=== PATIENT | female | born 1995 | race American Indian/Alaskan Native ===

== ENCOUNTER 2017-08-28 17:54 | Emergency (ER) | payer OTHER ==
[2017-08-28 17:54] VITALS: BMI 26.5
[2017-08-28 18:12] VITALS: BP 140/72; PULSE 80; RESP 16; TEMP 97.6; O2SAT 100
--- NOTE | 2017-08-28 18:36 | ED PDOC ---
HPI: Female Pain Time Seen by Provider: 08/28/17 18:23 Chief Complaint (Nursing): Abdominal Pain Chief Complaint (Provider): Pelvic pain History Per: Patient History/Exam Limitations: no limitations Onset/Duration Of Symptoms: Days (1 week) Additional Complaint(s): Pt. with pelvic pain across lower. No vaginal bleeding. No dysuria. No back pain. Has nausea, no vomit. No fever, chest pain. Wants to know if she is preg. Feels like her period type pain. Past Medical History Reviewed: Nursing Documentation, Vital Signs Vital Signs: Last Vital Signs Temp 97.6 F 08/28/17 18:07 Pulse 80 08/28/17 18:07 Resp 16 08/28/17 18:07 BP 140/72 08/28/17 18:07 Pulse Ox 100 08/28/17 18:07 - Medical History PMH: Asthma Denies: Anxiety, Bipolar Disorder, Depression, Personality Disorder, Post Traumatic Stress Disorder, Schizophrenia - Surgical History Surgical History: No Surg Hx - Family History Family History: States: Unknown Family Hx - Living Arrangements Living Arrangements: With Family - Social History Current smoker - smoking cessation education provided: No Alcohol: None Drugs: Denies - Immunization History Hx Tetanus Toxoid Vaccination: No Hx Influenza Vaccination: No Hx Pneumococcal Vaccination: No - Home Medications Home Medications: Ambulatory Orders Medication Instructions Recorded Ibuprofen [Motrin] 600 mg PO TID 7 Days tab 08/28/17 - Allergies Allergies/Adverse Reactions: Allergies Allergy/AdvReac Type Severity Reaction Status Date / Time No Known Allergies Allergy Verified 08/28/17 18:07 Review of Systems ROS Statement: Except As Marked, All Systems Reviewed And Found Negative Gastrointestinal: Positive for: Nausea Genitourinary Female: Positive for: Pelvic Pain Physical Exam - Reviewed Nursing Documentation Reviewed: Yes Vital Signs Reviewed: Yes - Physical Exam Appears: Positive for: Non-toxic, No Acute Distress Head Exam: Positive for: ATRAUMATIC, NORMAL INSPECTION, NORMOCEPHALIC Skin: Positive for: Normal Color, Warm, DRY Eye Exam: Positive for: EOMI, Normal appearance, PERRL ENT: Positive for: Normal ENT Inspection Neck: Positive for: Normal, Painless ROM Cardiovascular/Chest: Positive for: Regular Rate, Rhythm Respiratory: Positive for: CNT, Normal Breath Sounds Gastrointestinal/Abdominal: Positive for: Bowel Sounds, Soft, Tenderness ( across lower pelvic) Back: Positive for: Normal Inspection. Negative for: L CVA Tenderness, R CVA Tenderness Extremity: Positive for: Normal ROM. Negative for: Tenderness, Pedal Edema Neurologic/Psych: Positive for: Alert, Oriented - Laboratory Results Result Diagrams: 08/28/17 18:54 08/28/17 18:54 Interpretation Of Abn Labs: no acute Urine POC: Negative Urine dip results: Negative for: Nitrate - ECG O2 Sat by Pulse Oximetry: 100 Pulse Ox Interpretation: Normal - CT Scan/US us Other Rad Studies (CT/US): Radiology Report Reviewed Other Rad Interpretation: ovarian cyst - Progress ED Course And Treament: 2020: Stable. AAOx3. Pain free. Tolerated PO. Fu with obgyn. Disposition - Clinical Impression Clinical Impression: Ovarian cyst - Patient ED Disposition Is Patient to be Admitted: No Counseled Patient/Family Regarding: Studies Performed, Diagnosis, Need For Followup, Rx Given - Disposition [facility] Disposition: Routine/Home Disposition Time: 20:22 Condition: STABLE Additional Instructions: Return if not better in 3 days. Prescriptions: Ibuprofen [Motrin] 600 mg PO TID 7 Days tab Instructions: Ovarian Cyst (ED)
[2017-08-28] MEDS ORDERED: Sodium Chloride 0.9% 1,000 ML IV STA (18:42)
[2017-08-28 19:00] LABS: BASO # 0.1 K/uL (0.0-0.2); EOS # 0.4 K/uL (0.0-0.7); EOS % 4.5 % (0.0-4.0); HEMATOCRIT 40.7 % (34.0-47.0); LYMPH # 2.9 K/uL (1.0-4.3); LYMPH % 31.7 % (20.0-40.0); MEAN CORPUSCULAR HEMOGLOBIN 30.1 pg (27.0-31.0); MEAN CORPUSCULAR HGB CONC 32.7 g/dL (33.0-37.0); MEAN PLATELET VOLUME 9.4 fl (7.2-11.7); MONO # 0.5 K/uL (0.0-0.8); NEUT # 5.3 K/uL (1.8-7.0); NEUT % 57.8 % (50.0-75.0); NRBC % 0.1 % (0.0-0.0); WHITE BLOOD COUNT 9.2 K/uL (4.8-10.8)
[2017-08-28 19:17] LABS: ALB/GLOB RATIO 1.3 (1.0-2.1); ALKALINE PHOSPHATASE 58 U/L (38-126); ALT/SGPT 28 U/L (9-52); AST/SGOT 19 U/L (14-36); BLOOD UREA NITROGEN 13 mg/dl (7-17); CALCIUM 9.6 mg/dL (8.4-10.2); CARBON DIOXIDE 26 mmol/L (22-30); CHLORIDE 106 mmol/L (98-107); GFR AFRICAN-AMERICAN > 60; GLUCOSE,RANDOM 75 mg/dL (65-105); SODIUM 142 mmol/l (132-148); TOTAL PROTEIN 8.2 G/DL (6.3-8.2)
--- NOTE | 2017-08-28 20:28 | US ---
EXAM: US Pelvis, Transvaginal EXAM DATE/TIME: 08/28/2017 6:42 PM CLINICAL HISTORY: 22 years old, female; Pain; Pelvic pain; Additional info: Vaginal bleeding TECHNIQUE: Real-time transvaginal pelvic ultrasound (complete) with image documentation. Transvaginal imaging was used for better evaluation of the endometrium and adnexa. COMPARISON: No relevant prior studies available. FINDINGS: Uterus: Measures 6.6 x 3.5 x 4.1 cm. Endometrial stripe does not appear abnormally thickened, measuring 7.2 mm in AP dimensions. No fibroids seen. Cervix appears closed. Right ovary: Measures 2.8 x 1.6 x 2.8 cm. Within normal limits in appearance, containing multiple follicles. Flow seen in the right ovary on color and Doppler imaging, with no evidence of torsion. Left ovary: Measures 3.4 x 3.1 x 2.5 cm. Contains a cystic lesion measuring 2.7 x 2.3 cm maximally. This appears simple in nature internally. It has a crenulated appearance, and most likely represents a corpus luteal cyst, given its appearance. Flow seen in the left ovary on color and Doppler imaging, with no evidence of torsion. Cul-de-sac: Small amount of free fluid is seen. This may be physiologic in nature. IMPRESSION: No evidence of ovarian torsion or other significant acute abnormality. Small 2.7 cm left ovarian cystic lesion, most likely a corpus luteal cyst. Unremarkable uterus and right ovary. See above for remaining findings.
== END 2017-08-28 20:35 | disposition home or self-care (01) ==
LOC: H.ER 17:54
DX: N83.209 Unspecified ovarian cyst, unspecified side (principal); J45.909 Unspecified asthma, uncomplicated; N93.9 Abnormal uterine and vaginal bleeding, unspecified
CPT/HCPCS: 76830; 80053; 81025; 84702; 85025; 96374; 99284; J1885; J2405; J7040

== ENCOUNTER 2018-01-17 15:42 | Emergency (ER) | payer OTHER ==
[2018-01-17 15:42] VITALS: BMI 26.5
[2018-01-17 15:58] VITALS: BP 118/74; PULSE 74; RESP 18; TEMP 97.8; O2SAT 100
--- NOTE | 2018-01-17 16:58 | ED PDOC ---
HPI: Abdomen Time Seen by Provider: 01/17/18 15:57 Chief Complaint (Nursing): Abnormal Labs Chief Complaint (Provider): Abdominal Pain History Per: Patient History/Exam Limitations: no limitations Onset/Duration Of Symptoms: Days Current Symptoms Are (Timing): Still Present Additional Complaint(s): 22 year old female presents to the ED reporting of abdominal pain. Patient reports she had unprotected sex on December 28 and has missed her period. 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 Otherwise: (-) vomiting, (-) abdominal pain, (-) fever, (-) urinary symptoms, (-) vaginal bleeding. Has no additional complaints. Past Medical History Reviewed: Historical Data, Nursing Documentation, Vital Signs Vital Signs: Last Vital Signs Temp 97.8 F 01/17/18 15:55 Pulse 74 01/17/18 15:55 Resp 18 01/17/18 15:55 BP 118/74 01/17/18 15:55 Pulse Ox 100 01/17/18 17:04 - Medical History PMH: Asthma Denies: Anxiety, Bipolar Disorder, Depression, Personality Disorder, Post Traumatic Stress Disorder, Schizophrenia - Family History Family History: States: Unknown Family Hx - Immunization History Hx Tetanus Toxoid Vaccination: No Hx Influenza Vaccination: No Hx Pneumococcal Vaccination: No - Home Medications Home Medications: Ambulatory Orders Medication Instructions Recorded Ibuprofen [Motrin] 600 mg PO TID 7 Days tab 08/28/17 - Allergies Allergies/Adverse Reactions: Allergies Allergy/AdvReac Type Severity Reaction Status Date / Time No Known Allergies Allergy Verified 08/28/17 18:07 Review of Systems ROS Statement: Except As Marked, All Systems Reviewed And Found Negative Gastrointestinal: Positive for: Abdominal Pain Physical Exam - Reviewed Nursing Documentation Reviewed: Yes Vital Signs Reviewed: Yes - Physical Exam Appears: Positive for: Non-toxic, No Acute Distress Head Exam: Positive for: ATRAUMATIC, NORMAL INSPECTION, NORMOCEPHALIC Skin: Positive for: Normal Color, Warm, DRY Eye Exam: Positive for: EOMI, Normal appearance, PERRL ENT: Positive for: Normal ENT Inspection Neck: Positive for: Normal, Painless ROM, Supple Cardiovascular/Chest: Positive for: Regular Rate, Rhythm. Negative for: Murmur Respiratory: Positive for: Normal Breath Sounds. Negative for: Respiratory Distress Gastrointestinal/Abdominal: Positive for: Normal Exam, Soft. Negative for: Tenderness Back: Positive for: Normal Inspection. Negative for: L CVA Tenderness, R CVA Tenderness, Vertebral Tenderness Extremity: Positive for: Normal ROM Neurologic/Psych: Positive for: Alert, Oriented - ECG O2 Sat by Pulse Oximetry: 100 (RA) Pulse Ox Interpretation: Normal Medical Decision Making Medical Decision Making: Time: 1615 Plan: -- ED POC Urine Test Test results came back negative. Patient to be discharged home. Instructed to follow-up with her [facility] [employer] DEVELOPER for further evaluation. Advised to return to the emergency room at any time for any new or worsening symptoms. Patient states she fully agrees with and understands discharge instructions. States that she agrees with the plan and disposition. Verbalized and repeated discharge instructions and plan. I have given the patient opportunity to ask any additional questions. Scribe Attestation: Documented by Krishna Newby, acting as a scribe for Krystina Nascimento PA-C. Provider Scribe Attestation: All medical record entries made by the Scribe were at my direction and personally dictated by me. I have reviewed the chart and agree that the record accurately reflects my personal performance of the history, physical exam, medical decision making, and the department course for this patient. I have also personally directed, reviewed, and agree with the discharge instructions and disposition. Disposition - Clinical Impression Clinical Impression: test negative - Patient ED Disposition Is Patient to be Admitted: No Counseled Patient/Family Regarding: Studies Performed, Diagnosis, Need For Followup - Disposition Disposition: Routine/Home Disposition Time: 16:15 Condition: STABLE Additional Instructions: Thank you for letting us take care of you today. You were treated for test - negative. The emergency medical care you received today was directed at your acute symptoms. Return to the Emergency Department if your symptoms worsen , do not improve, or if you have any other problems. Please follow up with your consulting practice manager in 2 days for re-evaluation and follow up. Bring any paperwork you were given at discharge with you along with any medications you are taking to your follow up visit. Our treatment cannot replace ongoing medical care by a primary care provider (PCP) outside of the emergency department. Thank you for allowing the [facility] team to be part of your care today. Instructions: Tests Forms: [email or web address] ([place])
== END 2018-01-17 16:27 | disposition home or self-care (01) ==
LOC: H.ER 15:42
DX: Z32.02 Encounter for pregnancy test, result negative (principal); J45.909 Unspecified asthma, uncomplicated

== ENCOUNTER 2018-07-06 11:48 | Emergency (ER) | payer OTHER ==
[2018-07-06 11:48] VITALS: BMI 26.5
[2018-07-06 12:20] VITALS: BP 114/74; PULSE 74; RESP 18; TEMP 98; O2SAT 99
--- NOTE | 2018-07-06 13:00 | ED PDOC ---
HPI: Female Pain Time Seen by Provider: 07/06/18 12:26 Chief Complaint (Nursing): Female Genitourinary Chief Complaint (Provider): Female Genitourinary History Per: Patient History/Exam Limitations: no limitations Additional Complaint(s): 23 y/o female presents to the ED for evaluation of vaginal discharge, onset a few days ago. Patient reports discharge smells "fishy" and is "liquidy" in consistency. Patient states discharge is associated with mild genital irritation. Patient reports of similar pain in the past and was diagnosed with Bacterial vaginosis. Patient states she wanted to make an appointment with her [facility] but was unable to as they do not open on Sundays. Patient additionally states she just wants suppositories for Bacterial vaginosis. Patient states she is not concerned for STDs. Patient reports she last saw her [facility] in May when she had her pap smear and cultures done. Patient denies any pain. PMD: none provided Past Medical History Reviewed: Historical Data, Nursing Documentation, Vital Signs Vital Signs: Last Vital Signs Temp 98.0 F 07/06/18 12:18 Pulse 74 07/06/18 12:18 Resp 18 07/06/18 12:18 BP 114/74 07/06/18 12:18 Pulse Ox 99 07/06/18 12:18 - Medical History PMH: Asthma Denies: Anxiety, Bipolar Disorder, Depression, Personality Disorder, Post Traumatic Stress Disorder, Schizophrenia - Surgical History Surgical History: No Surg Hx - Family History Family History: States: Unknown Family Hx - Social History Current smoker - smoking cessation education provided: No Ex-Smoker (has not smoked in the last 12 months): No Drugs: Denies - Immunization History Hx Tetanus Toxoid Vaccination: No Hx Influenza Vaccination: No Hx Pneumococcal Vaccination: No - Home Medications Home Medications: Ambulatory Orders Medication Instructions Recorded Ibuprofen [Motrin] 600 mg PO TID 7 Days tab 08/28/17 Metronidazole [Metrogel-Vaginal] 1 ea VG QPM #5 gel 07/06/18 - Allergies Allergies/Adverse Reactions: Allergies Allergy/AdvReac Type Severity Reaction Status Date / Time No Known Allergies Allergy Verified 07/06/18 12:18 Review of Systems ROS Statement: Except As Marked, All Systems Reviewed And Found Negative Constitutional: Negative for: Fever, Chills Gastrointestinal: Negative for: Nausea, Vomiting, Abdominal Pain, Diarrhea Genitourinary Female: Positive for: Vaginal Discharge Physical Exam - Reviewed Nursing Documentation Reviewed: Yes Vital Signs Reviewed: Yes - Physical Exam Appears: Positive for: No Acute Distress Head Exam: Positive for: ATRAUMATIC Skin: Positive for: Normal Color, Warm, Dry Eye Exam: Positive for: Normal appearance Neck: Positive for: Normal Cardiovascular/Chest: Positive for: Regular Rate, Rhythm. Negative for: Murmur Respiratory: Positive for: Normal Breath Sounds. Negative for: Respiratory Distress Gastrointestinal/Abdominal: Positive for: Normal Exam, Soft. Negative for: Tenderness Extremity: Positive for: Normal ROM. Negative for: Deformity Neurologic/Psych: Positive for: Alert, Oriented (x3). Negative for: Motor/Sensory Deficits - ECG O2 Sat by Pulse Oximetry: 99 Medical Decision Making Medical Decision Making: Time: 1242 Plan: -- Urinalysis -- Urine Culture -- Chlamydia/GC RNA, TNA -- Discussed sending urine for culture and Chlamydia/GC vs. doing a pelvic exam for further evaluation. Patient states she is sure that her symptoms are bacter ial vaginosis and does not want a pelvic exam at this time. Scribe Attestation: Documented by Krishna Newby, acting as a scribe for Carmen Aguilar PA-C. Provider Scribe Attestation: All medical record entries made by the Scribe were at my direction and personally dictated by me. I have reviewed the chart and agree that the record accurately reflects my personal performance of the history, physical exam, medical decision making, and the department course for this patient. I have also personally directed, reviewed, and agree with the discharge instructions and disposition. Disposition - Clinical Impression Clinical Impression: BV (bacterial vaginosis) - Patient ED Disposition Is Patient to be Admitted: No Counseled Patient/Family Regarding: Diagnosis, Need For Followup, Rx Given - Disposition Disposition: Routine/Home Disposition Time: 12:54 Condition: GOOD Prescriptions: Metronidazole [Metrogel-Vaginal] 1 ea VG QPM #5 gel Instructions: Bacterial Vaginosis (DC) Forms: [facility] (Kiswahili)
== END 2018-07-06 13:07 | disposition home or self-care (01) ==
LOC: H.ER 11:48
DX: N76.0 Acute vaginitis (principal)

== ENCOUNTER 2018-08-11 00:32 | Emergency (ER) | payer OTHER ==
[2018-08-11 00:49] VITALS: BMI 27.4
[2018-08-11 00:54] VITALS: BP 145/71; PULSE 93; RESP 18; TEMP 98.6; O2SAT 100
--- NOTE | 2018-08-11 01:26 | ED PDOC ---
HPI: Abdomen Time Seen by Provider: 08/11/18 00:33 Chief Complaint (Nursing): Abdominal Pain Chief Complaint (Provider): pelvic pain History Per: Patient History/Exam Limitations: no limitations Onset/Duration Of Symptoms: Days (x2) Current Symptoms Are (Timing): Still Present Additional Complaint(s): Sherron Thomas is a 23 year old female, with a past medical history of ovarian cysts, who presents to the emergency department complaining of a pelvic pain onset for x2 days. Patient states her menstrual period is 1-2 days late. She is uncertain if she is . She denies any vaginal bleeding or discharge. No further medical complaints. PMD: Ilir Almanzar Abnormal Vaginal Bleeding: No Past Medical History Reviewed: Historical Data, Nursing Documentation, Vital Signs Vital Signs: Last Vital Signs Temp 98.6 F 08/11/18 00:50 Pulse 93 H 08/11/18 00:50 Resp 18 08/11/18 00:50 BP 145/71 08/11/18 00:50 Pulse Ox 100 08/11/18 00:50 - Medical History PMH: Asthma Denies: Anxiety, Bipolar Disorder, Depression, Personality Disorder, Post Traumatic Stress Disorder, Schizophrenia - Surgical History Surgical History: No Surg Hx - Family History Family History: States: Unknown Family Hx - Social History Current smoker - smoking cessation education provided: No Alcohol: None Drugs: Denies - Immunization History Hx Tetanus Toxoid Vaccination: No Hx Influenza Vaccination: No Hx Pneumococcal Vaccination: No - Home Medications Home Medications: Ambulatory Orders Medication Instructions Recorded Ibuprofen [Motrin] 600 mg PO TID 7 Days tab 08/28/17 Metronidazole [Metrogel-Vaginal] 1 ea VG QPM #5 gel 07/06/18 - Allergies Allergies/Adverse Reactions: Allergies Allergy/AdvReac Type Severity Reaction Status Date / Time No Known Allergies Allergy Verified 08/11/18 00:49 Review of Systems ROS Statement: Except As Marked, All Systems Reviewed And Found Negative Genitourinary Female: Positive for: Pelvic Pain. Negative for: Vaginal Discharge, Vaginal Bleeding Physical Exam - Reviewed Nursing Documentation Reviewed: Yes Vital Signs Reviewed: Yes - Physical Exam Appears: Positive for: No Acute Distress Head Exam: Positive for: ATRAUMATIC, NORMAL INSPECTION, NORMOCEPHALIC Skin: Positive for: Normal Color, Warm, Dry Eye Exam: Positive for: Normal appearance, EOMI, PERRL Neck: Positive for: Normal, Painless ROM Cardiovascular/Chest: Positive for: Regular Rate, Rhythm. Negative for: Murmur Respiratory: Positive for: Normal Breath Sounds. Negative for: Respiratory Distress Gastrointestinal/Abdominal: Positive for: Normal Exam, Soft. Negative for: Tenderness, Guarding, Rebound Back: Positive for: Normal Inspection. Negative for: L CVA Tenderness, R CVA Tenderness, Vertebral Tenderness Extremity: Positive for: Normal ROM (upper and lower extremities). Negative for: Deformity, Swelling Neurologic/Psych: Positive for: Alert, Oriented - Laboratory Results Result Diagrams: 08/11/18 01:25 - ECG O2 Sat by Pulse Oximetry: 100 (RA) Pulse Ox Interpretation: Normal Medical Decision Making Medical Decision Making: Time: 00:33 Initial Impression: 23 y/o female with pelvic pain. Labs and US ordered Initial Plan: --Beta-HCG, Quantitative --Urine --Urine dipstick --CBC w/ differential --Urinalysis --Transvaginal [US] --Reevaluation 03:04 Transvaginal US Findings: Anteverted uterus measuring 7.4x4x5.7 cm. Diffusely thickened endometrium measuring 18 mm. Free fluid is noted in the pelvic cul-de-sac. Nonvisualization of the right ovary. Nonvisualization of the left ovary. Prominent bowel peristalsis is noted adjacent to the right adnexa. Ovaries were not visualized. Impression: Thickened endometrium. No intrauterine is seen. Moderate amount of free fluid in the pelvic cul-de-sac. 04:02 Patient is medical stable for discharge, diagnosis of early . Patient advised to follow up with [facility] in x2-3 days. Return precautions provided. ----- Scribe Attestation: Documented by Tayo Pa, acting as a scribe for Larry Shannon MD. Provider Scribe Attestation: All medical record entries made by the Scribe were at my direction and personally dictated by me. I have reviewed the chart and agree that the record accurately reflects my personal performance of the history, physical exam, medical decision making, and the department course for this patient. I have also personally directed, reviewed, and agree with the discharge instructions and disposition. Disposition - Clinical Impression Clinical Impression: Early stage of - Disposition Disposition: Routine/Home Disposition Time: 04:02 Condition: STABLE Instructions: - The First Month, - The Second Month Forms: [employer] (Vietnamese)
[2018-08-11 01:33] LABS: SQUAMOUS EPITHIAL 7 /hpf (0-5); URINE BILIRUBIN NEGATIVE (NEGATIVE); URINE BLOOD NEGATIVE (NEGATIVE); URINE CLARITY SLIGHTY-CLOUDY (Clear); URINE COLOR YELLOW (YELLOW); URINE GLUCOSE (UA) NEG (Normal); URINE LEUKOCYTE ESTERASE TRACE Leu/uL (Negative); URINE PROTEIN NEGATIVE (NEGATIVE); URINE UROBILINOGEN 0.2-1.0 mg/dL (0.2-1.0)
[2018-08-11 01:36] LABS: BASO # 0.1 K/uL (0.0-0.2); EOS # 0.3 K/uL (0.0-0.7); EOS % 3.1 % (0.0-4.0); HEMOGLOBIN 12.1 g/dL (12.0-16.0); LYMPH # 3.5 K/uL (1.0-4.3); LYMPH % 35.9 % (20.0-40.0); MEAN CELL VOLUME 92.8 fl (81.0-99.0); MEAN CORPUSCULAR HEMOGLOBIN 30.7 pg (27.0-31.0); MEAN CORPUSCULAR HGB CONC 33.1 g/dL (33.0-37.0); MEAN PLATELET VOLUME 9.3 fl (7.2-11.7); MONO # 0.7 K/uL (0.0-0.8); MONO % 7.1 % (0.0-10.0); NEUT # 5.1 K/uL (1.8-7.0); NEUT % 52.9 % (50.0-75.0); RBC 3.95 Mil/uL (3.80-5.20); RED CELL DISTRIBUTION WIDTH 13.5 % (11.5-14.5); WHITE BLOOD COUNT 9.7 K/uL (4.8-10.8)
--- NOTE | 2018-08-11 11:08 | US ---
Date of service: 08/11/2018 HISTORY: pelvic pain in preg COMPARISON: None available. TECHNIQUE: Transabdominal and transvaginal FINDINGS: UTERUS: Measures 7.4 x 4.0 x 5.7 cm. Normal in size and appearance. No fibroid or other mass lesion seen. ENDOMETRIUM: Measures 18 mm in diameter. No intrauterine gestational sac identified. No fluid seen within the endometrial cavity. CERVIX: No cervical abnormality identified. RIGHT OVARY: Not visualized LEFT OVARY: Not visualized FREE FLUID: There is moderate free fluid in the cul-de-sac of uncertain origin. No generalized ascites noted. No fluid seen in Gonzalez's pouch. OTHER FINDINGS: None. IMPRESSION: No intrauterine gestation identified. Moderate amount of fluid in the cul-de-sac, nonspecific. Cannot rule out ectopic on the basis of this examination. The preliminary findings for this examination were reported by [facility] Radiology at 3:04 a.m. on 08/11/2018. There is concurrence of this report with the preliminary findings.
== END 2018-08-11 04:11 | disposition home or self-care (01) ==
LOC: H.ER 00:32
DX: Z33.1 Pregnant state, incidental (principal)